=== PATIENT | female | born 1950 | race Caucasian/White ===

== ENCOUNTER 2016-07-27 14:55 | Emergency (ER) | payer OTHER ==
[2016-07-27 15:01] VITALS: RESP 16; TEMP 98.2
--- NOTE | 2016-07-27 15:31 | EDPHY ---
H & P Time Seen by Provider: 07/27/16 15:12 HPI/ROS: Chief complaint. Nausea vomiting, elevated pulse HPI. 65-year-old female with shortness of breath for approximately 10 days. Weight loss over the past 3 weeks. She noticed faster than normal pulse. Generally achy. No cough or fever. She has had influenza once this year. She has had nausea without vomiting or diarrhea. She had a change in her thyroid medication 1 week ago from Synthroid or Synthroid to a natural thyroid compound. No chest discomfort. No abdominal pain. No rash ROS Constitutional. Weight loss Eyes. no problems with vision ENT. no sore throat, no nasal drainage Cardiovascular. no chest pain Respiratory. Shortness of breath but no cough Abdominal. No abdominal pain. But nausea . no problems urinating MS. no calf pain/swelling, no neck/back pain, no joint pain Skin. no rash Lymph. no swollen glands Neuro. no headache, no dizziness, no difficulty walking or with speech Past Medical/Surgical History: Past medical history asthma, thyroidectomy Social History: , nonsmoker, no alcohol Smoking Status: Never smoked Physical Exam: General Appearance: Alert well-developed female mild distress vital signs are stable Eyes: Pupils equal and round no pallor or injection. ENT, Mouth: Mucous membranes are moist. Respiratory: There are no retractions, lungs are clear to auscultation. Cardiovascular: Regular rate and rhythm. Gastrointestinal: Abdomen is soft and nontender, no masses, bowel sounds normal. Neurological: Awake and alert, sensory and motor exams grossly normal. Skin: Warm and dry, no rashes. Musculoskeletal: Neck is supple nontender. Extremities symmetrical, full range of motion. Psychiatric: Patient is oriented X 3, there is no agitation. Constitutional: Initial Vital Signs Temperature (C) 36.8 C 07/27/16 14:57 Heart Rate 88 07/27/16 14:57 Respiratory Rate 16 07/27/16 14:57 Blood Pressure 111/79 07/27/16 14:57 O2 Sat (%) 96 07/27/16 14:57 O2 Delivery Mode Room Air Allergies/Adverse Reactions: Sulfa (Sulfonamide Antibiotics) Allergy (Verified 07/27/16 14:58) Home Medications: Medication Instructions Recorded Advair 100/50 (*) 07/27/16 FLUoxetine 07/27/16 Nature Thyroid 07/27/16 Progesterone 07/27/16 Medical Decision Making - Diagnostics EKG Interpretation: EKG interpreted by me shows normal sinus rhythm with normal interval and axis. There is right bundle branch block present. Otherwise no significant ST elevation or depression. No arrhythmia. The rate is 82 No old EKG for comparison Imaging: Chest x-ray interpreted by me shows right-sided pulmonary nodule, COPD, small right pleural effusion, scoliosis. Procedures: IV normal saline, monitor ED Course/Re-evaluation: On serial evaluations patient remained stable. The patient, her , and I discussed imaging studies with the right lung granuloma. We discussed EKG studies with the right bundle branch block. We discussed that we do not have previous EKG or chest x-ray. We discussed that further evaluation is necessary for this. We discussed her laboratory evaluation including TSH levels and again recommendation for further evaluation of this. They expressed understanding and agreement Differential Diagnosis: This is likely viral syndrome. I considered pneumonia, pneumothorax. I considered hyperthyroidism. Patient has an abnormal chest x-ray and EKG that require follow-up. No evidence for acute coronary syndrome. There may have been some element of anxiety today which the patient feels is likely. She declines a prescription for Ativan - Data Points Laboratory Results: Laboratory Results 07/27/16 15:44 07/27/16 15:44 07/27/16 07/27/16 07/27/16 17:04 16:17 15:44 WBC RBC Hgb Hct MCV MCH MCHC RDW Plt Count MPV Neut % (Auto) Lymph % (Auto) [place] % (Auto) Eos % (Auto) Baso % (Auto) Nucleat RBC Rel Count Absolute Neuts (auto) Absolute Lymphs (auto) Absolute Monos (auto) Absolute Eos (auto) Absolute Basos (auto) Absolute Nucleated RBC Immature Gran % Immature Gran # D-Dimer < 0.27 ug/mLFEU ug/mLFEU (0.00-0.50) Sodium 130 mEq/L L mEq/L (134-144) Potassium 4.2 mEq/L mEq/L (3.5-5.2) Chloride 98 mEq/L mEq/L (97-110) Carbon Dioxide 23 mEq/l mEq/l (22-31) Anion Gap 9 mEq/L mEq/L (8-16) BUN 17 mg/dL mg/dL (7-23) Creatinine 0.8 mg/dL mg/dL (0.6-1.0) Estimated GFR > 60 Glucose 91 mg/dL mg/dL (70-100) Calcium 9.5 mg/dL mg/dL (8.5-10.4) Total Bilirubin 0.6 mg/dL mg/dL (0.1-1.4) Conjugated Bilirubin 0.3 mg/dL mg/dL (0.0-0.5) Unconjugated Bilirubin 0.3 mg/dL mg/dL (0.0-1.1) AST 33 IU/L IU/L (14-46) ALT 40 IU/L IU/L (9-52) Alkaline Phosphatase 50 IU/L IU/L (38-126) Troponin I < 0.012 ng/mL ng/mL (0-0.034) NT-Pro-B Natriuret Pep 157 pg/mL H pg/mL (0-125) Total Protein 7.2 g/dL g/dL (6.3-8.2) Albumin 4.3 g/dL g/dL (3.5-5.0) Lipase 124.0 IU/L IU/L (23-300) TSH 0.477 uIU/mL uIU/mL (0.465-4.680) Influenza A & B (PCR) NEGATIVE FOR FLU (NEGATIVE) 07/27/16 15:44 WBC 5.36 10^3/uL 10^3/uL (3.80-9.50) RBC 4.23 10^6/uL 10^6/uL (4.18-5.33) Hgb 13.0 g/dL g/dL (12.6-16.3) Hct 36.8 % L % (38.0-47.0) MCV 87.0 fL fL (81.5-99.8) MCH 30.7 pg pg (27.9-34.1) MCHC 35.3 g/dL g/dL (32.4-36.7) RDW 12.9 % % (11.5-15.2) Plt Count 208 10^3/uL 10^3/uL (150-400) MPV 8.8 fL fL (8.7-11.7) Neut % (Auto) 54.1 % % (39.3-74.2) Lymph % (Auto) 32.8 % % (15.0-45.0) [place] % (Auto) 9.3 % % (4.5-13.0) Eos % (Auto) 3.0 % % (0.6-7.6) Baso % (Auto) 0.6 % % (0.3-1.7) Nucleat RBC Rel Count 0.0 % % (0.0-0.2) Absolute Neuts (auto) 2.90 10^3/uL 10^3/uL (1.70-6.50) Absolute Lymphs (auto) 1.76 10^3/uL 10^3/uL (1.00-3.00) Absolute Monos (auto) 0.50 10^3/uL 10^3/uL (0.30-0.80) Absolute Eos (auto) 0.16 10^3/uL 10^3/uL (0.03-0.40) Absolute Basos (auto) 0.03 10^3/uL 10^3/uL (0.02-0.10) Absolute Nucleated RBC 0.00 10^3/uL 10^3/uL (0-0.01) Immature Gran % 0.2 % % (0.0-1.1) Immature Gran # 0.01 10^3/uL 10^3/uL (0.00-0.10) D-Dimer Sodium Potassium Chloride Carbon Dioxide Anion Gap BUN Creatinine Estimated GFR Glucose Calcium Total Bilirubin Conjugated Bilirubin Unconjugated Bilirubin AST ALT Alkaline Phosphatase Troponin I NT-Pro-B Natriuret Pep Total Protein Albumin Lipase TSH Influenza A & B (PCR) Medications Given: Discontinued Medications Sodium Chloride (Ns) 1,000 mls @ 0 mls/hr IV ONCE ONE PRN Reason: Wide Open Stop: 07/27/16 15:39 Last Admin: 07/27/16 15:50 Dose: 1,000 mls Ondansetron HCl (Zofran) 4 mg IVP EDNOW ONE Stop: 07/27/16 15:40 Last Admin: 07/27/16 15:55 Dose: 4 mg Departure - Departure Disposition: Home, Routine, Self-Care Clinical Impression: Viral syndrome Condition: Good Instructions: Viral Syndrome (ED) Additional Instructions: Your TSH on July 12 was 0.158. Your TSH today is 0.477 You have a right bundle branch block on your EKG and we do not have old EKGs for comparison. Please take the EKG that I have given you to Dr. Orta for comparison. Cardiology follow-up if this is a new finding You have a calcified granuloma in the right upper lobe of your lung. This is likely benign. Again we do not have any old chest x-rays for comparison. Please discuss this with Dr. Orta and have further evaluation if necessary Easy activity, rest, fluids, Tylenol or Advil for fever. Return for worsening symptoms. Please follow-up with Dr. Orta in the next 2-3 days Referrals: Sophie Orta MD [Primary Care Provider] - 2-3 days, call for appt.
[2016-07-27] MEDS ORDERED: NS 1,000 ML IV ONE (15:38)
[2016-07-27] MEDS ORDERED: ONDANSETRON 4 MG/2 ML VIAL IVP ONE (15:39)
--- NOTE | 2016-07-27 15:55 | CPEKG ---
Heart Rate: 82 RR Interval: 732 P-R Interval: 128 QRSD Interval: 144 QT Interval: 432 QTC Interval: 505 P [place]: 73 QRS [place]: 92 T Wave [place]: -42 EKG Severity - ABNORMAL ECG - EKG Impression: SINUS RHYTHM EKG Impression: RIGHT BUNDLE BRANCH BLOCK Electronically Signed By: Casper Mckeon 27-Jul-2016 16:10:13
[2016-07-27 15:56] LABS: % IMMATURE GRANULYOCYTES 0.2 % (0.0-1.1); ABSOLUTE IMMATURE GRANULOCYTES 0.01 10^3/uL (0.00-0.10); ADD DIFF? NO; ADD MORPH? NO; ADD SCAN? NO; ATYPICAL LYMPHOCYTE FLAG 10 (0-99); FRAGMENT RBC FLAG 0 (0-99); HEMATOCRIT 36.8 % (38.0-47.0); LEFT SHIFT FLG 0 (0-99); LIPEMIA HEMOLYSIS FLAG 90 (0-99); MEAN CELL HEMOGLOBIN 30.7 pg (27.9-34.1); MEAN CELL HEMOGLOBIN CONCENTR. 35.3 g/dL (32.4-36.7); MEAN PLATELET VOLUME 8.8 fL (8.7-11.7); PLATELET CLUMPS FLAG 0 (0-99); PLATELET COUNT 208 10^3/uL (150-400); RED BLOOD CELL COUNT 4.23 10^6/uL (4.18-5.33); RED CELL DISTRIBUTION WIDTH 12.9 % (11.5-15.2)
[2016-07-27 16:12] LABS: ALANINE AMINOTRANSFERASE 40 IU/L (9-52); ALBUMIN 4.3 g/dL (3.5-5.0); ALKALINE PHOSPHATASE 50 IU/L (38-126); ANION GAP 9 mEq/L (8-16); ASPARTATE AMINOTRANSFERASE 33 IU/L (14-46); BILIRUBIN,TOTAL 0.6 mg/dL (0.1-1.4); BILIRUBIN-CONJUGATED 0.3 mg/dL (0.0-0.5); BILIRUBIN-UNCONJUGATED 0.3 mg/dL (0.0-1.1); CALCIUM 9.5 mg/dL (8.5-10.4); CARBON DIOXIDE 23 mEq/l (22-31); CHLORIDE 98 mEq/L (97-110); CREATININE 0.8 mg/dL (0.6-1.0); GLOMERULAR FILTRATION RATE > 60; GLUCOSE 91 mg/dL (70-100); POTASSIUM 4.2 mEq/L (3.5-5.2); SODIUM 130 mEq/L (134-144); TOTAL PROTEIN 7.2 g/dL (6.3-8.2)
[2016-07-27 16:24] LABS: TROPONIN I < 0.012 ng/mL (0-0.034)
[2016-07-27 19:11] VITALS: BP 116/60; PULSE 80; O2SAT 93
== END 2016-07-27 19:10 | disposition home or self-care (01) ==
DX: B34.9 Viral infection, unspecified (principal); J45.909 Unspecified asthma, uncomplicated
CPT/HCPCS: 96374; J2405